=== PATIENT | female | born 1975 | race African-American/Black ===

== ENCOUNTER 2019-11-12 06:43 | Day surgery (SDC) | payer OTHER ==
[~2019-11-12] VITALS: Ht 167.6 cm; Wt 97.5 kg
[~2019-11-12 06:43] MED LIST: ACETAMINOPHEN 650 MG SUPP PR ONE; IRON65TA2 PO; LIDOCAINE 1% MDV 20ML VIAL SQ PRN; MULTCAP PO; SODIUM CHLORIDE 0.9% 1000ML IV ONE
[2019-11-12] MEDS ORDERED: LR 1,000 ML IV ONE (07:00)
[2019-11-12] MEDS ORDERED: SODIUM CHLORIDE 0.9% 1000ML IV ONE (07:00)
[2019-11-12] MEDS ORDERED: ACETAMINOPHEN 650 MG SUPP PR ONE (07:00)
[2019-11-12 07:09] LABS: HEMATOCRIT 33.4 % (36.0-47.0); HEMOGLOBIN 10.5 g/dl (12.0-15.5); MEAN CORPUSCULAR HEMOGLOBIN 26.6 pg (27.0-33.0); MEAN CORPUSCULAR HGB CONC 31.4 g/dl (32.0-36.5); MEAN CORPUSCULAR VOLUME 84.8 fl (80.0-96.0); PLATELET COUNT, AUTOMATED 232 10^3/uL (150-450); RED BLOOD COUNT 3.94 10^6/uL (4.00-5.40)
[2019-11-12 07:43] LABS: BLOOD UREA NITROGEN 11 MG/DL (7-18); CALCIUM LEVEL 8.8 MG/DL (8.5-10.1); CARBON DIOXIDE LEVEL 23 MEQ/L (21-32); CHLORIDE LEVEL 107 MEQ/L (98-107); CREATININE FOR GFR 1.11 MG/DL (0.55-1.30); GLOMERULAR FILTRATION RATE > 60.0 (>58); GLUCOSE, FASTING 85 MG/DL (70-100); HCG, SERUM QUANTITATIVE < 1.0 MIU/ML; POTASSIUM SERUM 4.3 MEQ/L (3.5-5.1); SODIUM LEVEL 139 MEQ/L (136-145)
[2019-11-12] MEDS ORDERED: MIDAZOLAM INJ 2 MG/2 ML VIAL (J2250) As Ordered ONE (07:46)
[2019-11-12] MEDS ORDERED: KETOROLAC 60 MG/2 ML VIAL (J1885) As Ordered ONE (07:46)
[2019-11-12] MEDS ORDERED: propofoL 200 MG/20 ML VIAL As Ordered ONE (07:46)
[2019-11-12] MEDS ORDERED: LIDOCAINE 2% INJ 100 MG/5 ML SDV (FOR ANES.) As Ordered ONE (07:46)
[2019-11-12] MEDS ORDERED: dexameTHASONE 4 MG/ML 1ML VIAL (J1100) As Ordered ONE (07:46)
[2019-11-12] MEDS ORDERED: fentaNYL 100 MCG/2 ML INJECTION (J3010) As Ordered ONE (07:46)
[2019-11-12] MEDS ORDERED: ACETAMINOPHEN 650 MG SUPP As Ordered ONE ×2 (08:18→08:48)
[2019-11-12] MEDS ORDERED: oxyCODONE 5MG TAB PO PRN (09:45)
[2019-11-12] MEDS ORDERED: LR 1,000 ML IV SCH (09:45)
[2019-11-12] MEDS ORDERED: ONDANSETRON 4MG/2ML VIAL (J2405) IV PRN (09:45)
[2019-11-12] MEDS ORDERED: fentaNYL 100 MCG/2 ML INJECTION (J3010) IV PRN (09:45)
[2019-11-12] MEDS ORDERED: KETOROLAC 30 MG/ML VIAL (J1885) IV PRN ×2 (10:00→15:00)
[2019-11-12 11:55] VITALS: BP 113/63
--- NOTE | 2019-11-19 13:28 | RO ---
DATE OF PROCEDURE: 11/12/2019 PREOPERATIVE DIAGNOSIS: Abnormal uterine bleeding and menorrhagia. POSTOPERATIVE DIAGNOSIS: Abnormal uterine bleeding secondary to medication, adenomyosis and patulous cervix. OPERATION PROPOSED: Hysteroscopy, dilation and curettage, NovaSure ablation. OPERATION PERFORMED: Hysteroscopy, dilation and curettage, failed ablation. SURGEON: Robert Lopez MD SCOURING MACHINE TENDER: ANESTHESIA: General. ESTIMATED BLOOD LOSS: Less than 20 mL. This patient had requested an endometrial ablation. She had been on the NuvaRing and Depo-Provera, had intermittent bleeding and had some menorrhagia issues and after discussing other options such as Mirena intrauterine contraceptive device (IUCD) the patient elected to have a hysteroscopy dilation and curettage (D and C), NovaSure endometrial ablation DESCRIPTION OF PROCEDURE: After adequate time-out, prepped and draped in the lithotomy position, the bladder was drained for 200 mL of clear urine. Sequentials in place. Acetaminophen suppository 1300 mg per rectum. We noticed an weighted speculum in the vagina that she has a marked rectocele. She has a very patulous cervix and the uterus was sounded to a depth of 12 cm. We went ahead and did a curettage. Her last menstrual period (LMP) was August of 2019 based on Depo-Provera and NuvaRing. The uterus as mentioned was sound to depth of 12 cm. We then went ahead and put the NovaSure ablation instrument into the uterus. The cavity length was 6.5. The width was 4.5. We blocked off the cervix initially with a single-tooth tenaculum and Vaseline gauze packed around the cervix. We then allowed the machine to run through its procedure and it had failed. The red light had gone on indicating that there was some issue with the machinery as we were listening intently. There was no evidence of leak. We then went ahead and replaced the CO2 cartridge. We then manipulated the instrument in the uterusm, reset it, reset the machine. We packed off the cervix with gauze and Vaseline. We used a double tooth tenaculum on either side getting an excellent seal. We then went ahead with allowing the machine to run through its process and again it had failed. Having done that we removed all instruments. We replaced the wand, refitted the wand into the uterus after sounding the uterus and getting a good seal again using gauze and single-tooth tenaculums around the cervix. The machinery failed for a third time. After that we elected to abandon the procedure. We did hysteroscopic evaluation using 150 mL in, 150 mL out. The anterior and posterior quiñonez were intact. The lateral quiñonez were intact. The ostia were noted to be normal. The area where we had done a curettage was evident and there was no evidence of perforation in the uterus. We elected to abandon the procedure and will discuss options with the patient. The patient was sent to recovery in good condition.
== END 2019-11-12 12:41 | disposition home or self-care (01) ==
LOC: M SDC 06:43
PROVIDERS: ATTEND Obstetrics & Gynecology
DX: N80.0 Endometriosis of uterus (principal); N81.6 Rectocele; N92.0 Excessive and frequent menstruation with regular cycle; M54.5 Low back pain; Z79.899 Other long term (current) drug therapy
CPT/HCPCS: 36415; 58563; 80048; 84702; 85027; 88305; J1100; J1885; J2250; J3010

== ENCOUNTER 2019-12-04 08:55 | Day surgery (SDC) | payer OTHER ==
[~2019-12-04] VITALS: Ht 165.1 cm; Wt 96.8 kg
[~2019-12-04 08:55] MED LIST changes: +LR 1,000 ML IV ONE; -SODIUM CHLORIDE 0.9% 1000ML IV ONE
[2019-12-04 09:30] LABS: HEMATOCRIT 35.6 % (36.0-47.0); MEAN CORPUSCULAR HGB CONC 30.9 g/dl (32.0-36.5); MEAN CORPUSCULAR VOLUME 84.2 fl (80.0-96.0); PLATELET COUNT, AUTOMATED 213 10^3/uL (150-450); RED BLOOD COUNT 4.23 10^6/uL (4.00-5.40); WHITE BLOOD COUNT 3.7 10^3/uL (4.0-10.0)
[2019-12-04] MEDS ORDERED: MIDAZOLAM INJ 2 MG/2 ML VIAL (J2250) As Ordered ONE (10:07)
[2019-12-04] MEDS ORDERED: dexameTHASONE 4 MG/ML 1ML VIAL (J1100) As Ordered ONE (10:07)
[2019-12-04] MEDS ORDERED: propofoL 200 MG/20 ML VIAL As Ordered ONE (10:07)
[2019-12-04] MEDS ORDERED: fentaNYL 100 MCG/2 ML INJECTION (J3010) As Ordered ONE (10:07)
[2019-12-04] MEDS ORDERED: ONDANSETRON 4MG/2ML VIAL (J2405) As Ordered ONE (10:07)
[2019-12-04] MEDS ORDERED: LIDOCAINE 2% INJ 100 MG/5 ML SDV (FOR ANES.) As Ordered ONE (10:07)
[2019-12-04] MEDS ORDERED: ACETAMINOPHEN 650 MG SUPP As Ordered ONE (10:58)
[2019-12-04] MEDS ORDERED: METOCLOPRAMIDE INJ 10MG/2ML VIAL (J2765) As Ordered ONE (11:14)
[2019-12-04] MEDS ORDERED: KETOROLAC 60 MG/2 ML VIAL (J1885) As Ordered ONE (11:38)
[2019-12-04] MEDS ORDERED: LR 1,000 ML IV SCH (12:15)
[2019-12-04] MEDS ORDERED: HYDROMORPHONE HCL 0.5 MG/ 0.5 ML SYRINGE (J1170 PER 1) IV PRN (12:15)
[2019-12-04] MEDS ORDERED: ONDANSETRON 4MG/2ML VIAL (J2405) IV PRN (12:15)
[2019-12-04] MEDS ORDERED: fentaNYL 100 MCG/2 ML INJECTION (J3010) IV PRN (12:15)
[2019-12-04] MEDS ORDERED: oxyCODONE 5MG TAB PO PRN (12:15)
[2019-12-04 12:21] VITALS: BP 109/64
[2019-12-04] MEDS ORDERED: KETOROLAC 30 MG/ML VIAL (J1885) IV PRN (18:00)
== END 2019-12-04 13:36 | disposition home or self-care (01) ==
LOC: M SDC 08:55
PROVIDERS: ATTEND Obstetrics & Gynecology
DX: N92.6 Irregular menstruation, unspecified (principal); N88.2 Stricture and stenosis of cervix uteri; D64.9 Anemia, unspecified
CPT/HCPCS: 36415; 58300; 58555; 84702; 85027; J1100; J1885; J2250; J2765; J3010; J7298